=== PATIENT | female | born 1935 | race Caucasian/White ===

== ENCOUNTER 2018-06-27 22:55 | Emergency (ER) | payer OTHER, MEDICARE ==
--- NOTE | 2018-06-27 23:57 | PDOC ---
History of Present Illness - General Stated Complaint: FALL Time Seen by Provider: 06/27/18 23:17 - History of Present Illness Initial Comments: 83 year old female with PMH of afib (on eliquis), HTN, NPH (s/p shunt placement) , and bilateral hip replacements presenting with fall outside of her garage with head trauma. Patient isn't completely clear on the reason of her fall or the vents around it but states that she was walking down a slight slope to her garage from the outside of her house when she believes that she tripped over the drain outside of her house. She was using her walker during this time. After tripping she fell and hit the back of her head on the cement ground around her. She had difficulty getting back up by herself so she called for her family who called for EMS. After some discussion, she admits to having a few alcoholic beverages tonight including a "tall gin" and a few glasses exam. Per EMS and family she has been alert and oriented since the incident and is mostly upset that she got blood in her hair after a new hair cut. Denies any fevers, SOB, chest pain, nausea, vomiting, diarrhea, constipation, visual symptoms, focal weakness, tingling, paresthesias, or other symptoms. 06/27/18 23:47 Past History - Past Medical History Allergies/Adverse Reactions: Allergies Allergy/AdvReac Type Severity Reaction Status Date / Time No Known Allergies Allergy Verified 06/28/18 01:17 Review of Systems - Review of Systems Constitutional: No: Chills, Fever, Loss of Appetite, Malaise HEENTM: No: Blurred Vision, Tearing, Recent change in vision, Double Vision Respiratory: No: Cough, Orthopnea, Shortness of Breath, SOB with Exertion, Wheezing Cardiac (ROS): No: Chest Pain, Edema, Irregular Heart Rate ABD/GI: No: Diarrhea, Nausea, Poor Fluid Intake, Vomiting : No: Dysuria, Discharge, Frequency Musculoskeletal: Yes: Joint Pain, Joint Stiffness. No: Back Pain, Joint Swelling Integumentary: No: Bruising, Erythema, Lesions, Lumps Neurological: Yes: Headache, Pre-Existing Deficit, Unsteady Gait, Ataxia. No: Numbness, Paresthesia, Tremors, Weakness Psychiatric: No: Anxiety, Depression Endocrine: No: Intolerance to Heat, Increased Hunger, Increased Thirst Hematologic/Lymphatic: Yes: Easy Bleeding. No: Anemia, Blood Clots *Physical Exam - Physical Exam General Appearance: Yes: Nourished, Appropriately Dressed. No: Apparent Distress HEENT: positive: EOMI, ANTONIO. negative: Normal ENT Inspection (Posterior scalp laceration measuring 2 cms in length slightly irregular wth mild bleeding at the site.) Neck: positive: Trachea midline, Normal Thyroid, Supple. negative: Tender, Rigid Respiratory/Chest: positive: Chest Tender, Lungs Clear, Normal Breath Sounds. negative: Respiratory Distress Cardiovascular: positive: Regular Rhythm, Regular Rate Gastrointestinal/Abdominal: positive: Normal Bowel Sounds, Flat, Soft. negative : Tender Lymphatic: negative: Adenopathy, Tenderness Musculoskeletal: positive: Normal Inspection. negative: CVA Tenderness Extremity: positive: Normal Capillary Refill, Normal Inspection, Normal Range of Motion. negative: Tender Integumentary: positive: Normal Color, Dry, Warm Neurologic: positive: consumer attorney II-XII NML intact, Fully Oriented, Alert, Normal Mood/ Affect, Normal Response, Motor Strength 5/5 Procedures - Laceration/Wound Repair Posterior Head Wound Length: to 2.5 cm Wound Explored: clean Wound's Depth, Shape: superficial Irrigated w/ Saline: Yes Betadine Prep: No Anesthesia: 2% Lidocaine w/ Epi Amount of Anesthetic (ccs): 4 Wound Debrided: minimal Wound Repaired With: Tracy Number of Sutures: 1 Layer Closure: No ED Treatment Course - RADIOLOGY Radiology Studies Ordered: Category Date Time Status HEAD CT WITHOUT CONTRAST [CT] Stat CT Scan 06/27/18 23:06 Taken Medical Decision Making - Medical Decision Making 83 year old with suspicion for mechanical trip and fall leading to posterior head trauma with bleeding while on Eliquis. Head CT negative and wound stapled with one staple. Patient then wanted to AMA despite chest XR, EKG, and labs pending. She understood risks of leaving AMA including repeat falls, worsening heart condition, or sudden but still wanted to AMA. 06/28/18 06:50 *DC/Admit/Observation/Transfer Diagnosis at time of Disposition: Headache, post-traumatic Qualifiers: Headache chronicity pattern: acute headache Intractability: not intractable Qualified Code(s): G44.319 - Acute post-traumatic headache, not intractable - Discharge Dispostion Disposition: AGAINST MEDICAL ADVICE Condition at time of disposition: Stable Decision to Admit order: No - Referrals - Patient Instructions Printed Discharge Instructions: Closed Head Injury Additional Instructions: Please watch Jaclyn for nausea, vomiting, or sleepiness for the next 24 hours. If you see any of these symptoms, please return to the ED immediately. Please follow up at 7 days with your primary care doctor or our ED to have the tracy removed. Please keep the wound clean and dry. If you notice any fevers, swelling , or foul smelling drainage from the staple site, please return to the ED. Please use Tylenol for the pain. - Post Discharge Activity
[2018-06-28] VITALS: BP 146/94; PULSE 78; TEMP 97.3; BMI 36.6
--- NOTE | 2018-06-28 00:26 | PDOC ---
Attending Attestation - HPI HPI: 06/28/18 01:18 The patient is an 83-year-old female with past medical history significant for AFib (on Eliquis), HTN, NPH (s/p shunt placement), and B/l hip replacement presents to the emergency department s/p a mechanical fall. The patient reports she was ambulating down her garage with her walker when she tripped and suffered a fall. The patient states she fell and injured the back of the head on the cement ground. The patient states she had trouble getting up post the fall, so she called her family for help. The patient reports she was celebrating her birthday today and reports having some alcoholic beverages. Denies chest pain, shortness of breath, nausea, vomiting, vertigo, confusion. Allergies: None recorded. Social history: Social use of alcohol. Surgical history: Bilateral hip replacement. PCP: None reported. - Physicial Exam PE: 06/28/18 00:50 Vitals: Triage vital signs reviewed General Appearance: No acute distress, well nourished, well developed Neck: Supple; No nuchal rigidity Chest Wall: Nontender Cardiac: Regular rate and rhythm, no murmurs, no rubs, no gallops Lungs: Clear to auscultation bilateral, good air movement bilaterally Abdomen: Soft, nondistended, normal bowel sounds, nontender to palpation Extremities: Full range of motion to all extremities, no cyanosis, clubbing, or edema Skin: Posterior scalp laceration measuring 2 cms in length slightly irregular wth mild bleeding at the site Neuro: AOX3; Cranial Nerves 2-12 grossly intact, Strength intact to all extremities, Sensation intact to all extremities, gait normal Psych: Normal mood, normal affect - Medical Decision Making 06/28/18 00:50 Documentation prepared by Farida Stewart, acting as medical historian for Melquiades Del Rosario MD. <Farida Stewart - Last Filed: 06/28/18 01:27> - Resident Resident Name: Amber Coates - ED Attending Attestation I have performed the following: I have examined & evaluated the patient, The case was reviewed & discussed with the resident, I agree w/resident's findings & plan, Exceptions are as noted - HPI HPI: 06/28/18 00:26 Agree with residents HPI - Physicial Exam PE: 06/28/18 00:26 Agree with residents PE - Medical Decision Making 83 years old with reported mechanical fall after having a few drinks this evening. Patient sustained a head injury with laceration see resident's note for laceration repair Patient presents to the ED with family at bedside recommended EKG and blood work to rule out other etiologies of patient's fall Patient refusing additional workup here in the emergency department. Family at bedside. Understands risks and benefits The patient is presenting with fall. I am concerned that this may be secondary to underlying medical etiology. The patient has verbalized understanding of my concerns. The patient is clinically sober and appears free from distracting injury. The patient appears to have intact insight, judgment, and reason. In my opinion, this patient has the capacity to make decisions The risks of leaving against medical advice without further evaluation treatment were discussed with the patient. These risks include , permanant disability. The patient indicated understanding of these risks and appeared to have the capacity to make this decision. The patient is unwilling to stay for a EKG laboratory analysis further management. Patient is unwilling to remain for additional monitoring. He is refusing further care and leaving against medical advice I'm unable to convince the patient to stay. I have asked the patient to return as soon as possible to complete his/her evaluation. <Melquiades Del Rosario - Last Filed: 06/28/18 02:44>
[2018-06-28] MEDS ORDERED: LIDOCAINE 1%/EPI 1:100000 (20 ML MULTI DOSE VIAL) ONE (00:51)
== END 2018-06-28 01:20 | disposition left against medical advice (07) ==
LOC: JER 22:55
PROC: 0HQ0XZZ Repair Scalp Skin, External Approach (ICD-10-PCS; principal; 2018-06-27)
DX: S01.01XA Laceration without foreign body of scalp, initial encounter (principal); G44.319 Acute post-traumatic headache, not intractable; W18.39XA Other fall on same level, initial encounter; Y93.89 Activity, other specified; Y92.015 Private garage of single-family (private) house as the place of occurrence of the external cause; Y99.8 Other external cause status; I10 Essential (primary) hypertension; I48.91 Unspecified atrial fibrillation; Z79.01 Long term (current) use of anticoagulants; G91.2 (Idiopathic) normal pressure hydrocephalus; Z96.89 Presence of other specified functional implants; Z98.2 Presence of cerebrospinal fluid drainage device; R26.89 Other abnormalities of gait and mobility; Z99.89 Dependence on other enabling machines and devices
CPT/HCPCS: 12001; 70450-TC; 99282-25

== ENCOUNTER 2021-08-09 17:17 | Observation (INO) | payer OTHER, MEDICARE ==
[2021-08-09] MEDS ORDERED: OXYMETAZOLINE 0.05% NASAL SOLUTION 15 ML BOTTLE NS ONE (17:51)
[2021-08-09] MEDS ORDERED: SODIUM CHLORIDE 0.9% 500 ML INFUS.BAG IV ONE (18:26)
[2021-08-09 19:09] LABS: BASO % 0.4 % (0-2.0); EOS % 0.8 % (0-4.5); HEMATOCRIT 44.9 % (32.4-45.2); LYMPH % 30.9 % (8-40); MCH 29.8 pg (25.7-33.7); MCHC 33.3 g/dl (32.0-36.0); MEAN CELL VOLUME 89.5 fl (80-96); MEAN PLT VOLUME 9.4 fl (7.5-11.1); NEUT % 56.9 % (42.8-82.8); PLATELET COUNT 169 10^3/uL (134-434); RBC 5.01 M/mm3 (3.60-5.2); RDW 14.7 % (11.6-15.6); WHITE BLOOD COUNT 11.5 K/mm3 (4.0-10.0)
[2021-08-09 19:36] LABS: CHLORIDE 108 mmol/L (98-107); SODIUM 140 mmol/L (136-145)
[2021-08-09 19:38] LABS: ALBUMIN 2.9 g/dl (3.4-5.0); ANION GAP 6 MMOL/L (8-16); BLOOD UREA NITROGEN 18.4 mg/dL (7-18); CO2 26 mmol/L (21-32)
[2021-08-09 19:40] LABS: GLUCOSE,RANDOM 149 mg/dL (74-106)
[2021-08-09 19:41] LABS: SGOT/AST 32 U/L (15-37); SGPT/ALT 22 U/L (13-61)
[2021-08-09 19:44] LABS: ALK PHOS 100 U/L (45-117); BILIRUBIN,TOTAL 0.7 mg/dL (0.2-1); TOT PROT 6.2 g/dl (6.4-8.2)
[2021-08-09] MEDS ORDERED: SODIUM CHLORIDE 1,000 ML IV SCH (20:15)
[2021-08-09 21:25] LABS: EPI CELLS 9 /uL (0-25.1); HYALINE CASTS 2 /uL (0-3.1); PH,URINE 6.5 (5.0-8.0); URINE APPEARANCE CLEAR; URINE BACTERIA 49 /uL (0-1359); URINE BILIRUBIN NEGATIVE (NEGATIVE); URINE COLOR YELLOW; URINE GLUCOSE (UA) NEGATIVE (NEGATIVE); URINE KETONE NEGATIVE (NEGATIVE); URINE LEUK ESTERASE NEGATIVE (NEGATIVE); URINE NITRITE NEGATIVE (NEGATIVE); URINE PROTEIN NEGATIVE (NEGATIVE); URINE RBC 43 /uL (0-23.9); URINE WBC 5 /uL (0-25.8)
[2021-08-10 03:55] VITALS: BMI 35.1
[2021-08-10 07:19] LABS: BASO % 0.4 % (0-2.0); EOS % 0.6 % (0-4.5); HEMATOCRIT 37.2 % (32.4-45.2); HEMOGLOBIN 12.6 GM/dL (10.7-15.3); LYMPH % 20.5 % (8-40); MCH 30.2 pg (25.7-33.7); MCHC 33.9 g/dl (32.0-36.0); MEAN PLT VOLUME 9.5 fl (7.5-11.1); MONO % 12.1 % (3.8-10.2); NEUT % 66.4 % (42.8-82.8); PLATELET COUNT 131 10^3/uL (134-434); RBC 4.18 M/mm3 (3.60-5.2); RDW 14.8 % (11.6-15.6); WHITE BLOOD COUNT 8.9 K/mm3 (4.0-10.0)
[2021-08-10 07:46] LABS: CALCIUM 8.7 mg/dL (8.5-10.1)
[2021-08-10 07:47] LABS: ALBUMIN 2.5 g/dl (3.4-5.0)
[2021-08-10 07:50] LABS: CREATININE 0.9 mg/dL (0.55-1.3)
[2021-08-10 07:52] LABS: TOT PROT 5.3 g/dl (6.4-8.2)
[2021-08-10] MEDS ORDERED: DONEPEZIL HCL 10 MG TABLET (FP) PO SCH (10:00)
[2021-08-10] MEDS ORDERED: SODIUM CHLORIDE NASAL SPRAY 44 ML BOTTLE NS SCH (10:00)
[2021-08-10] MEDS ORDERED: ALLOPURINOL 300 MG TABLET (FP) PO SCH (10:00)
[2021-08-10] MEDS ORDERED: metoPROLOL SUCCINATE 25 MG TAB.SR.24H (FP) PO SCH (10:00)
[2021-08-10] MEDS ORDERED: FLU VACC QS2021-22(6MOS UP)/PF 60 MCG/0.5 ML SYRINGE IM ONE (10:00)
[2021-08-10 10:27] VITALS: BP 130/78; PULSE 102; TEMP 97.9
[2021-08-10 11:16] LABS: EPI CELLS 21 /uL (0-25.1); HYALINE CASTS 5 /uL (0-3.1); URINE APPEARANCE CLEAR; URINE BACTERIA 56 /uL (0-1359); URINE BILIRUBIN NEGATIVE (NEGATIVE); URINE COLOR YELLOW; URINE GLUCOSE (UA) NEGATIVE (NEGATIVE); URINE KETONE NEGATIVE (NEGATIVE); URINE LEUK ESTERASE TRACE (NEGATIVE); URINE NITRITE NEGATIVE (NEGATIVE); URINE PROTEIN NEGATIVE (NEGATIVE); URINE RBC 13 /uL (0-23.9); URINE WBC 16 /uL (0-25.8)
[2021-08-10] MEDS ORDERED: PT OWN MED DRAWER 7, Y5N ONE (13:11)
[2021-08-10] MEDS ORDERED: ATORVASTATIN CA 40 MG TABLET (FP) PO SCH (22:00)
== END 2021-08-10 17:54 | disposition home or self-care (01) ==
LOC: JER 17:17 → JERBED 18:46 → J4W 08-10 00:23
PROVIDERS: ADMIT Internal Medicine; ATTEND Nurse Practitioner Acute Care
PROC: 3E0234Z Introduction of Serum, Toxoid and Vaccine into Muscle, Percutaneous Approach (ICD-10-PCS; principal; 2021-08-09)
PROC: 3E0337Z Introduction of Electrolytic and Water Balance Substance into Peripheral Vein, Percutaneous Approach (ICD-10-PCS; 2021-08-09)
DX: R04.0 Epistaxis (principal); I48.91 Unspecified atrial fibrillation; D72.829 Elevated white blood cell count, unspecified; R31.9 Hematuria, unspecified; M10.9 Gout, unspecified; Z29.9 Encounter for prophylactic measures, unspecified; E66.9 Obesity, unspecified; Z68.35 Body mass index [BMI] 35.0-35.9, adult; D33.3 Benign neoplasm of cranial nerves
CPT/HCPCS: 36415; 80053; 81003; 82550; 82962; 83735; 84100; 84484; 85025; 86850; 86900; 86901; 90686; 93005; 93010; 96360; 96372; 99285-25; C9803; G0008; G0378; U0003; U0005

== ENCOUNTER 2021-09-19 10:04 | Emergency (ER) | payer OTHER, MEDICARE ==
[2021-09-19 10:27] VITALS: BMI 28.3
[2021-09-19 12:01] LABS: BASO % 0.4 % (0-2.0); EOS % 0.8 % (0-4.5); HEMATOCRIT 40.6 % (32.4-45.2); HEMOGLOBIN 13.1 GM/dL (10.7-15.3); LYMPH % 14.4 % (8-40); MCH 28.2 pg (25.7-33.7); MCHC 32.2 g/dl (32.0-36.0); MEAN CELL VOLUME 87.5 fl (80-96); NEUT % 75.4 % (42.8-82.8); PLATELET COUNT 171 10^3/uL (134-434); RBC 4.64 M/mm3 (3.60-5.2); RDW 14.9 % (11.6-15.6); WHITE BLOOD COUNT 9.3 K/mm3 (4.0-10.0)
[2021-09-19 12:09] LABS: INR 1.29 (0.83-1.09); PROTHROMBIN TIME (PATIENT) 14.5 SEC (9.7-13.0)
[2021-09-19 12:24] LABS: CALCIUM 8.9 mg/dL (8.5-10.1)
[2021-09-19 12:25] LABS: ALBUMIN 2.8 g/dl (3.4-5.0); BLOOD UREA NITROGEN 21.8 mg/dL (7-18)
[2021-09-19 12:29] LABS: BILIRUBIN,TOTAL 0.7 mg/dL (0.2-1)
[2021-09-19 12:30] LABS: TOT PROT 6.6 g/dl (6.4-8.2)
[2021-09-19 13:08] VITALS: BP 157/87; PULSE 90
== END 2021-09-19 13:14 | disposition home or self-care (01) ==
LOC: JER 10:04
DX: R04.0 Epistaxis (principal)
CPT/HCPCS: 36415; 80053; 85025; 85610; 99283-25